=== PATIENT | female | born 1995 | race Caucasian/White ===

== ENCOUNTER 2018-04-19 16:07 | Emergency (ER) | payer OTHER ==
[~2018-04-19] VITALS: Ht 170.2 cm; Wt 68.2 kg
[2018-04-19 16:10] VITALS: BP 118/71; PULSE 56; TEMP 98.3
[2018-04-19] MEDS ORDERED: VALTREX 50500 MG/TAB PO (16:42)
[2018-04-19] MEDS ORDERED: PROZAC 20MG20 MG PO (16:42)
[2018-04-19] MEDS ORDERED: DEPO-PROVE150 MG/1 M IM (16:43)
[2018-04-19] MEDS ORDERED: VALTREX1 GM PO (17:09)
== END 2018-04-19 17:29 | disposition home or self-care (01) ==
LOC: COL.ER 16:07
DX: B00.9 Herpesviral infection, unspecified (principal); F12.90 Cannabis use, unspecified, uncomplicated; Z98.890 Other specified postprocedural states

== ENCOUNTER 2024-09-15 01:20 | Emergency (ER) | payer BC ==
[~2024-09-15] VITALS: Ht 172.7 cm; Wt 63.6 kg
[~2024-09-15 01:20] MED LIST: DEPO-PROVE150 MG/1 M IM; PROZAC 20MG20 MG PO; VALTREX 50500 MG/TAB PO; VALTREX1 GM PO
[2024-09-15] MEDS ORDERED: Hyoscyamine 0.125 MG Sublingual TAB SL ONE ×2 (01:45→03:30)
[2024-09-15 01:47] VITALS: TEMP 98.1
[2024-09-15] MEDS ORDERED: ZOFRAN ODT4 MG PO (03:16)
[2024-09-15] MEDS ORDERED: Home Ondansetron ODT 4 MG #2 ODT/PACK PO ONE (03:30)
[2024-09-15 03:35] VITALS: BP 107/63; PULSE 95
== END 2024-09-15 03:36 | disposition home or self-care (01) ==
LOC: COL.ER 01:20
DX: R11.2 Nausea with vomiting, unspecified (principal); R10.13 Epigastric pain